=== PATIENT | female | born 1950 | race Caucasian/White ===

== ENCOUNTER 2017-11-10 16:17 | Inpatient (IN) | payer OTHER ==
[2017-11-10] VITALS (10 sets, daily range): BP systolic 118–149; BP diastolic 47–85
[~2017-11-10] VITALS: Ht 160 cm; Wt 81.3 kg
[2017-11-10 16:31] LABS: BASOPHIL (%) 0.7 % (0-1); BASOPHIL COUNT 0.1 K/uL (0-0.1); EOSINOPHIL (%) 1.6 % (0-5); EOSINOPHIL COUNT 0.2 K/uL (0-0.3); HEMATOCRIT 38.5 % (36.0-46.0); HEMOGLOBIN 12.9 G/DL (11.9-15.5); IMMATURE GRANULOCYTE (%) 0.2 % (0.0-0.7); LYMPHOCYTE (%) 23.7 % (15-42); LYMPHOCYTE COUNT 2.7 K/uL (1.0-2.8); MCH 30.4 PG (29.0-34.0); MCHC 33.5 G/DL (30.0-36.0); MCV 90.6 FL (83-99); MONOCYTE (%) 8.8 % (3-12); NEUTROPHIL COUNT 7.4 K/uL (1.8-6.4); PLATELET COUNT 180 K/uL (156-360); RBC DIS.WIDTH-CV 12.2 % (11.8-14.6); RBC DIS.WIDTH-SD 40.2 % (39-53); RED BLOOD COUNT 4.25 M/uL (3.80-5.20); WHITE BLOOD COUNT 11.3 K/uL (4.1-10.2)
[2017-11-10 16:37] LABS: INTER. NORMALIZED RATIO 1.1
[2017-11-10 16:40] LABS: PTT 23.4 SEC (25-37)
[2017-11-10 16:43] LABS: AMYLASE 45 IU/L (1-118); CHLORIDE 105 mEq/L (99-109); POTASSIUM 3.3 mEq/L (3.7-5.4); SODIUM 140 mEq/L (136-147)
[2017-11-10 16:44] LABS: GLUCOSE 87 mg/dL (70-99)
[2017-11-10 16:47] LABS: SERUM ETHYL ALCOHOL < 10 mg/dL
[2017-11-10 16:48] LABS: CREATININE 0.9 mg/dL (0.6-1.3); GFR ESTIMATE (CALCULATED) > 59 mL/min/
[2017-11-10 16:49] LABS: UREA NITROGEN (BUN) 19 mg/dL (9-23)
[2017-11-10 16:51] LABS: LIPASE 33 U/L (1.0-51.0)
[2017-11-10 16:53] LABS: TROP-I INTERPRETATION NEGATIVE; TROPONIN-I 0.01 ng/mL (0.0-0.30)
[2017-11-10 19:08] LABS: APPEARANCE CLEAR ((CLEAR)); BILIRUBIN NEGATIVE; BLOOD SMALL; COLOR YELLOW ((YELLOW)); GLUCOSE (STRIP) NEGATIVE; KETONES NEGATIVE; LEUKOCYTES NEGATIVE; NITRITE POSITIVE; PROTEIN (STRIP) NEGATIVE; SPECIFIC GRAVITY 1.024 (1.000-1.030); UROBILINOGEN 0.2 MG/DL (0.2-1.0)
[2017-11-10] MEDS ORDERED: LEVOTHYROXINE125 MCG PO (19:08)
[2017-11-10] MEDS ORDERED: ATORVASTATIN CA10 MG PO (19:08)
[2017-11-10] MEDS ORDERED: LOSARTAN-HCTZ1 EAC1 PO (19:08)
[2017-11-10 19:13] LABS: BACTERIA RARE /HPF; EPITHELIAL CELLS RARE /HPF; MUCUS TRACE /LPF; RED BLOOD CELLS 0-5 /HPF (0-5); UCUL ADDED? NO; WHITE BLOOD CELLS 0-5 /HPF (0-5)
[2017-11-10 19:16] LABS: AMPHETAMINE NEGATIVE (500 ng/mL); BARBITURATES NEGATIVE (200 ng/mL); BENZODIAZEPINES NEGATIVE (150 ng/mL); BUPRENORPHINE NEGATIVE (10 ng/mL); COCAINE NEGATIVE (150 ng/mL); METHADONE NEGATIVE (200 ng/mL); METHAMPHETAMINE NEGATIVE (500 ng/mL); OPIATES (MORPHINE) NEGATIVE (100 ng/mL); OXYCODONE NEGATIVE (100 ng/mL); PHENCYCLIDINE NEGATIVE (25 ng/mL); PROPOXYPHENE NEGATIVE (300 ng/mL); THC CANNABINOIDS NEGATIVE (50 ng/mL); TRICYCLIC ANTIDEPRESSANTS NEGATIVE (300 ng/mL)
[2017-11-10 21:26] LABS: HDL CHOLESTEROL 40 MG/DL (Desirable>=50); LDL CHOLESTEROL 62 mg/dL (Desirable<100); NON-HDL CHOLESTEROL 84 mg/dL (Desirable<160); TOTAL CHOLESTEROL 124 mg/dL (Desirable<200); TRIGLYCERIDES 110 MG/DL (Normal: <150)
[2017-11-11] VITALS (25 sets, daily range): BP systolic 108–157; BP diastolic 45–84
[2017-11-11 06:09] LABS: HEMATOCRIT 36.6 % (36.0-46.0); MCH 29.6 PG (29.0-34.0); MCHC 32.8 G/DL (30.0-36.0); MCV 90.1 FL (83-99); PLATELET COUNT 168 K/uL (156-360); RBC DIS.WIDTH-CV 12.2 % (11.8-14.6); RBC DIS.WIDTH-SD 40.5 % (39-53); RED BLOOD COUNT 4.06 M/uL (3.80-5.20); WHITE BLOOD COUNT 8.2 K/uL (4.1-10.2)
[2017-11-11 06:35] LABS: CHLORIDE 107 MEQ/L (99-109); CREATININE 0.7 MG/DL (0.6-1.3); GFR ESTIMATE (CALCULATED) > 59 mL/min/; GLUCOSE 98 mg/dL (70-99); HDL CHOLESTEROL 34 MG/DL (Desirable>=50); LDL CHOLESTEROL 43 mg/dL (Desirable<100); MAGNESIUM 2.1 mg/dl (1.3-2.7); NON-HDL CHOLESTEROL 66 mg/dL (Desirable<160); PHOSPHORUS 4.2 mg/dL (2.5-4.9); POTASSIUM 3.5 MEQ/L (3.7-5.4); SODIUM 143 MEQ/L (136-147); TOTAL CHOLESTEROL 100 mg/dL (Desirable<200); TRIGLYCERIDES 117 MG/DL (Normal: <150); UREA NITROGEN (BUN) 14 mg/dL (9-23)
[2017-11-12 00:01] VITALS: BP 137/64
[2017-11-12 02:01] VITALS: BP 154/72
[2017-11-12 04:01] VITALS: BP 166/69
[2017-11-12 06:48] LABS: HEMOGLOBIN 12.4 G/DL (11.9-15.5); MCH 29.4 PG (29.0-34.0); MCHC 32.6 G/DL (30.0-36.0); PLATELET COUNT 170 K/uL (156-360); RBC DIS.WIDTH-CV 12.1 % (11.8-14.6); RBC DIS.WIDTH-SD 39.8 % (39-53); RED BLOOD COUNT 4.22 M/uL (3.80-5.20); WHITE BLOOD COUNT 7.7 K/uL (4.1-10.2)
[2017-11-12 07:12] LABS: CHLORIDE 108 MEQ/L (99-109); CREATININE 0.8 MG/DL (0.6-1.3); GFR ESTIMATE (CALCULATED) > 59 mL/min/; GLUCOSE 105 mg/dL (70-99); MAGNESIUM 2.1 mg/dl (1.3-2.7); PHOSPHORUS 3.4 mg/dL (2.5-4.9); POTASSIUM 3.9 MEQ/L (3.7-5.4); SODIUM 145 MEQ/L (136-147); UREA NITROGEN (BUN) 12 mg/dL (9-23)
[2017-11-12 07:18] VITALS: BP 134/80
[2017-11-12 11:00] VITALS: BP 110/56
[2017-11-12 11:06] LABS: HEMOGLOBIN A1c (GLYCOHEMOGLOB) 5.4 % (Below 5.7)
[2017-11-12 12:08] LABS: STOOL OCCULT BLD 1ST SPECIMEN NEGATIVE
[2017-11-12] MEDS ORDERED: ATORVASTATIN CA40 MG PO (13:00)
[2017-11-12] MEDS ORDERED: ASPIR-LOW81 MG PO (13:00)
[2017-11-12 15:14] VITALS: BP 116/55
== END 2017-11-12 17:11 | disposition home or self-care (01) | DRG 62 ==
LOC: EME 16:17 → EDOF 19:57 → 5SOUTH 19:57 → 4WEST 19:57 → CANRESERV 19:59 → ENRESERV 19:59 → 4WEST 21:22 → ENRESERV 11-12 01:11 → 5SOUTH 11-12 03:35
PROVIDERS: Emergency Medicine
DX: I63.511 Cerebral infarction due to unspecified occlusion or stenosis of right middle cerebral artery (principal); G81.94 Hemiplegia, unspecified affecting left nondominant side; R47.81 Slurred speech; I10 Essential (primary) hypertension; E03.9 Hypothyroidism, unspecified; R47.1 Dysarthria and anarthria; R29.810 Facial weakness; R29.717 NIHSS score 17; R29.715 NIHSS score 15; E78.5 Hyperlipidemia, unspecified; E78.00 Pure hypercholesterolemia, unspecified; E87.6 Hypokalemia; R47.01 Aphasia
CPT/HCPCS: 70450; 70496; 70498; 70551; 80048; 80061; 81003; 82150; 82272; 83036; 83690; 83735; 84100; 84443; 84484; 85025; 85027; 85610; 85730; 86850; 86900; 86901; 87641; 92523 GN; 92610 GN; 93005; 93306; 99281; 99285; G0480; J1644; J2997; J7030

== ENCOUNTER 2017-11-17 17:38 | Inpatient (IN) | payer OTHER ==
[~2017-11-17] VITALS: Ht 160 cm; Wt 80.0 kg
[~2017-11-17 17:38] MED LIST: ASPIR-LOW81 MG PO; ATORVASTATIN CA10 MG PO; ATORVASTATIN CA40 MG PO; LEVOTHYROXINE125 MCG PO; LOSARTAN-HCTZ1 EAC1 PO
[2017-11-17 18:22] LABS: HEMOGLOBIN 13.4 G/DL (11.9-15.5); MCH 30.3 PG (29.0-34.0); MCHC 33.5 G/DL (30.0-36.0); MCV 90.5 FL (83-99); PLATELET COUNT 198 K/uL (156-360); RBC DIS.WIDTH-CV 12.1 % (11.8-14.6); RBC DIS.WIDTH-SD 40.2 % (39-53); RED BLOOD COUNT 4.42 M/uL (3.80-5.20); WHITE BLOOD COUNT 10.4 K/uL (4.1-10.2)
[2017-11-17 18:33] LABS: CHLORIDE 103 mEq/L (99-109); POTASSIUM 3.8 mEq/L (3.7-5.4); SODIUM 140 mEq/L (136-147)
[2017-11-17 18:35] LABS: GLUCOSE 104 mg/dL (70-99)
[2017-11-17 18:39] LABS: CREATININE 1.1 mg/dL (0.6-1.3); GFR ESTIMATE (CALCULATED) 53 mL/min/
[2017-11-17 18:41] LABS: UREA NITROGEN (BUN) 24 mg/dL (9-23)
[2017-11-17 18:44] LABS: TROP-I INTERPRETATION NEGATIVE; TROPONIN-I < 0.01 ng/mL (0.0-0.30)
[2017-11-17] MEDS ORDERED: LO-DOSE ASPIRIN81 M1 PO (20:22)
[2017-11-17] MEDS ORDERED: ASPERCREME 1035.4 GM TP (20:24)
[2017-11-17 21:53] LABS: MAGNESIUM 2.5 mg/dL (1.3-2.7)
[2017-11-17 22:30] VITALS: BP 156/73
[2017-11-17 22:51] LABS: PTT 25.9 SEC (25-37)
[2017-11-17 23:26] LABS: TROP-I INTERPRETATION NEGATIVE; TROPONIN-I < 0.01 ng/mL (0.0-0.30)
[2017-11-18] VITALS (9 sets, daily range): BP systolic 100–130; BP diastolic 52–71
[2017-11-18 00:55] LABS: TROP-I INTERPRETATION NEGATIVE; TROPONIN-I < 0.01 ng/mL (0.0-0.30)
[2017-11-18 07:34] LABS: TROP-I INTERPRETATION NEGATIVE; TROPONIN-I < 0.01 ng/mL (0.0-0.30)
[2017-11-18] MEDS ORDERED: ELIQUIS5 MG PO (10:46)
[2017-11-18] MEDS ORDERED: CARDIZEM CD,CA180 MG PO (10:46)
[2017-11-19 03:34] VITALS: BP 100/53
[2017-11-19 07:12] VITALS: BP 116/55
== END 2017-11-19 14:07 | disposition home or self-care (01) | DRG 310 ==
LOC: EME 17:38 → ENRESERV 21:31 → 4EAST 21:31 → EDOF 21:31 → ENRESERV 21:48 → 4EAST 22:33
PROVIDERS: Internal Medicine; Nurse Practitioner Family; Physician Assistant Medical
DX: I48.0 Paroxysmal atrial fibrillation (principal); Z86.73 Personal history of transient ischemic attack (TIA), and cerebral infarction without residual deficits; I10 Essential (primary) hypertension; E78.5 Hyperlipidemia, unspecified; E03.9 Hypothyroidism, unspecified; Z85.828 Personal history of other malignant neoplasm of skin; Z90.721 Acquired absence of ovaries, unilateral; Z79.82 Long term (current) use of aspirin; Z79.899 Other long term (current) drug therapy; E66.9 Obesity, unspecified; Z68.32 Body mass index [BMI] 32.0-32.9, adult; R03.1 Nonspecific low blood-pressure reading; E87.6 Hypokalemia
CPT/HCPCS: 71046; 80048; 82948; 83735; 84443; 84484; 85027; 85610; 85730; 93005; 99281; 99285